=== PATIENT | female | born 1995 | race African-American/Black ===

== ENCOUNTER 2023-10-22 11:17 | Emergency (ER) | payer OTHER, SELFPAY ==
[2023-10-22 11:44] LABS: BASO % 0.2 % (0.0-1.0); EOS % 0.1 % (0.0-3.0); HEMATOCRIT 39.2 % (36.0-47.0); LYMPH # 1.4 10^3/uL (1.5-5.0); LYMPH % 16.6 % (24.0-44.0); MEAN CORPUSCULAR HEMOGLOBIN 29.7 pg (27.0-33.0); MEAN CORPUSCULAR HGB CONC 33.2 g/dl (32.0-36.5); MEAN CORPUSCULAR VOLUME 89.5 fl (80.0-96.0); MONO # 0.5 10^3/uL (0.0-0.8); MONO % 5.8 % (2.0-8.0); NEUTROPHILS # 6.6 10^3/uL (1.5-8.5); NEUTROPHILS % 76.8 % (36.0-66.0); PLATELET COUNT, AUTOMATED 220 10^3/uL (150-450); RED BLOOD COUNT 4.38 10^6/uL (4.00-5.40); WHITE BLOOD COUNT 8.6 10^3/uL (4.0-10.0)
[2023-10-22] MEDS: NS 1,000 ML IV ONE (11:45)
[2023-10-22] MEDS: HALOPERIDOL LACTATE 5MG/ML VIAL IV STA (11:45)
[2023-10-22 12:16] LABS: LIPASE 25 U/L (12-53)
[2023-10-22 12:18] LABS: ALBUMIN 4.1 G/DL (3.2-5.2); ALKALINE PHOSPHATASE 55 U/L (46-116); ALT/SGPT 20 U/L (7.0-40); AST/SGOT 31 U/L (<34); BILIRUBIN,DIRECT 0.2 MG/DL (<0.4); BILIRUBIN,TOTAL 0.9 MG/DL (0.3-1.2); TOTAL PROTEIN 7.1 G/DL (5.7-8.2)
[2023-10-22] MEDS: KETOROLAC 30 MG/ML 1ML VIAL IV ONE (13:53)
[2023-10-22 14:05] LABS: THYROID STIMULATING HORMONE 0.536 uIU/ML (0.55-4.78)
[2023-10-22 15:22] LABS: HIV 1&2 SCREEN NEGATIVE (NEGATIVE)
[2023-10-22 16:09] VITALS: BP 115/58; TEMP 96.5; O2SAT 97
[2023-10-22 16:58] LABS: Trichomonas vaginalis (AMP) NOT DETECTED (NEGATIVE)
[2023-10-22 17:21] LABS: GC DNA AMPLIFICATION NEGATIVE (NEGATIVE)
== END 2023-10-22 16:12 | disposition home or self-care (01) ==
LOC: M ED 11:17 → EDBD 11:17 → M ED 16:12
DX: F12.188 Cannabis abuse with other cannabis-induced disorder (principal); R11.2 Nausea with vomiting, unspecified; Z88.0 Allergy status to penicillin
CPT/HCPCS: 76856; 80047; 80076; 81001; 83690; 84443; 84702; 85025; 86780; 87389; 87661; 87810; 87850; 93976; 96361; 96374; 96375; 99284; J1630; J1885

== ENCOUNTER → 2024-02-12 | Outpatient (REF) | LOC: M LAB 16:10 | PROVIDERS: ATTEND Nurse Practitioner Adult Health | DX: Z02.89 Encounter for other administrative examinations (principal) ==

== ENCOUNTER 2024-03-04 12:08 | Emergency (ER) | payer OTHER, SELFPAY ==
[~2024-03-04] VITALS: Ht 152.4 cm; Wt 55.4 kg
[2024-03-04 16:27] LABS: Trichomonas vaginalis (AMP) NOT DETECTED (NEGATIVE)
[2024-03-04 16:50] LABS: GC DNA AMPLIFICATION NEGATIVE (NEGATIVE)
[2024-03-04 16:56] VITALS: BP 130/90; TEMP 98.4; O2SAT 100
[2024-03-04] MEDS ORDERED: METR-265 PO (16:57)
[2024-03-04] MEDS ORDERED: VALT500T PO (16:57)
== END 2024-03-04 17:08 | disposition home or self-care (01) ==
LOC: M ED 12:08
DX: N76.0 Acute vaginitis (principal); B00.9 Herpesviral infection, unspecified; Z88.0 Allergy status to penicillin; Z79.2 Long term (current) use of antibiotics; Z79.899 Other long term (current) drug therapy

== ENCOUNTER → 2024-03-29 | Outpatient (REF) ==
[~2024-03-29] MED LIST: METR-265 PO; VALT500T PO
== END ==
LOC: M EMP 09:25
PROVIDERS: ATTEND Family Medicine
DX: Z20.822 Contact with and (suspected) exposure to COVID-19 (principal)

== ENCOUNTER → 2024-03-30 | Outpatient (REF) | LOC: M EMP 09:13 | PROVIDERS: ATTEND Family Medicine | DX: Z20.822 Contact with and (suspected) exposure to COVID-19 (principal) ==

== ENCOUNTER 2024-06-12 16:57 | Emergency (ER) | payer SELFPAY ==
[~2024-06-12] VITALS: Ht 152.4 cm; Wt 57.9 kg
[2024-06-12 20:20] LABS: BASO % 0.2 % (0.0-1.0); EOS % 0.1 % (0.0-3.0); HEMATOCRIT 43.7 % (36.0-47.0); HEMOGLOBIN 14.2 g/dl (12.0-15.5); LYMPH # 3.4 10^3/uL (1.5-5.0); LYMPH % 34.6 % (24.0-44.0); MEAN CORPUSCULAR HEMOGLOBIN 29.2 pg (27.0-33.0); MEAN CORPUSCULAR HGB CONC 32.5 g/dl (32.0-36.5); MEAN CORPUSCULAR VOLUME 89.9 fl (80.0-96.0); MONO # 0.6 10^3/uL (0.0-0.8); NEUTROPHILS # 5.8 10^3/uL (1.5-8.5); NEUTROPHILS % 58.7 % (36.0-66.0); PLATELET COUNT, AUTOMATED 220 10^3/uL (150-450); RED BLOOD COUNT 4.86 10^6/uL (4.00-5.40); WHITE BLOOD COUNT 9.8 10^3/uL (4.0-10.0)
[2024-06-12 20:51] LABS: BLOOD UREA NITROGEN 12 MG/DL (9-23); CALCIUM LEVEL 9.9 MG/DL (8.5-10.1); CARBON DIOXIDE LEVEL 24 MMOL/L (20-31); CHLORIDE LEVEL 107 MMOL/L (98-107); CREATININE FOR GFR 0.73 MG/DL (0.55-1.30); GLOMERULAR FILTRATION RATE > 60.0 (>60); GLUCOSE, FASTING 91 MG/DL (60-100); MAGNESIUM LEVEL 1.9 MG/DL (1.8-2.4); POTASSIUM SERUM 4.2 MMOL/L (3.5-5.1); SODIUM LEVEL 139 MMOL/L (136-145)
[2024-06-12 20:53] LABS: THYROID STIMULATING HORMONE 3.563 uIU/ML (0.55-4.78)
[2024-06-12 20:54] LABS: FREE T4 1.01 NG/DL (0.89-1.76)
[2024-06-12 21:24] LABS: PTH INTACT 33.1 PG/ML (18.5-88.0)
[2024-06-12] MEDS: ONDANSETRON 4MG 2ML VIAL IV ONE (21:40)
[2024-06-12] MEDS ORDERED: ISOVUE-370 76% 100ML VIAL As Ordered ONE (21:43)
[2024-06-12 21:44] LABS: HCG, SERUM QUALITATIVE NEGATIVE (NEGATIVE); MONO SCRN NEGATIVE (NEGATIVE)
[2024-06-12 21:47] VITALS: BP 113/65; TEMP 98.5; O2SAT 99
[2024-06-12] MEDS ORDERED: PRED20TA PO (22:29)
[2024-06-12] MEDS: dexAMETHasone 20MG/5ML VIAL IV ONE (22:38)
== END 2024-06-12 22:48 | disposition home or self-care (01) ==
LOC: M ED 16:57
DX: R07.0 Pain in throat (principal); R09.A2 Foreign body sensation, throat; Z88.0 Allergy status to penicillin; Z79.52 Long term (current) use of systemic steroids; Z79.899 Other long term (current) drug therapy
CPT/HCPCS: 70491; 80048; 83735; 83970; 84100; 84439; 84443; 84703; 85025; 86308; 87486; 87581; 87633; 87798; 87880; 96374; 96375; 99284; J1100; J2405; Q9967

== ENCOUNTER 2024-07-10 15:12 | Emergency (ER) | payer OTHER, SELFPAY ==
[~2024-07-10] VITALS: Ht 152.4 cm; Wt 56.5 kg
[~2024-07-10 15:12] MED LIST changes: +PRED20TA PO
[2024-07-10 16:36] LABS: BASO % 0.3 % (0.0-1.0); HEMATOCRIT 39.1 % (36.0-47.0); LYMPH # 2.6 10^3/uL (1.5-5.0); LYMPH % 35.3 % (24.0-44.0); MEAN CORPUSCULAR HEMOGLOBIN 29.4 pg (27.0-33.0); MEAN CORPUSCULAR HGB CONC 33.2 g/dl (32.0-36.5); MEAN CORPUSCULAR VOLUME 88.5 fl (80.0-96.0); MONO # 0.5 10^3/uL (0.0-0.8); MONO % 7.4 % (2.0-8.0); NEUTROPHILS # 4.1 10^3/uL (1.5-8.5); NEUTROPHILS % 56.7 % (36.0-66.0); PLATELET COUNT, AUTOMATED 218 10^3/uL (150-450); RED BLOOD COUNT 4.42 10^6/uL (4.00-5.40); WHITE BLOOD COUNT 7.3 10^3/uL (4.0-10.0)
[2024-07-10 17:02] LABS: LIPASE 30 U/L (12-53)
[2024-07-10 17:04] LABS: ALBUMIN 4.5 G/DL (3.2-5.2); ALKALINE PHOSPHATASE 56 U/L (35-104); ALT/SGPT 13 U/L (7.0-40); AST/SGOT 18 U/L (<34); BILIRUBIN,DIRECT 0.3 MG/DL (<0.4); BILIRUBIN,TOTAL 0.9 MG/DL (0.3-1.2); BLOOD UREA NITROGEN 20 MG/DL (9-23); CALCIUM LEVEL 9.8 MG/DL (8.5-10.1); CARBON DIOXIDE LEVEL 22 MMOL/L (20-31); CHLORIDE LEVEL 108 MMOL/L (98-107); GLOMERULAR FILTRATION RATE > 60.0 (>60); GLUCOSE, FASTING 98 MG/DL (60-100); HCG, SERUM QUALITATIVE NEGATIVE (NEGATIVE); POTASSIUM SERUM 3.7 MMOL/L (3.5-5.1); SODIUM LEVEL 141 MMOL/L (136-145); TOTAL PROTEIN 7.9 G/DL (5.7-8.2)
[2024-07-10] MEDS: MAGNESIUM CITRATE 300ML BTL PO ONE (19:04)
[2024-07-10 19:08] VITALS: BP 111/62; TEMP 97.4; O2SAT 100
== END 2024-07-10 19:10 | disposition home or self-care (01) ==
LOC: M ED 15:12
DX: R10.32 Left lower quadrant pain (principal); K59.00 Constipation, unspecified; F12.10 Cannabis abuse, uncomplicated; Z88.0 Allergy status to penicillin

== ENCOUNTER → 2024-08-03 | Outpatient (REF) | payer OTHER | LOC: M LAB REF 16:18 | PROVIDERS: ATTEND Student in an Organized Health Care Education/Training Program | DX: K59.00 Constipation, unspecified (principal) ==